=== PATIENT | male | born 1995 | race African-American/Black ===

== ENCOUNTER 2018-05-08 19:58 | Emergency (ER) | payer OTHER ==
--- NOTE | 2018-05-08 22:35 | ED Physician Documentation ---
PD HPI URI - Stated complaint Stated Complaint: DIAZ/SORE THROAT - Chief complaint Chief Complaint: Heent - History obtained from History obtained from: Patient - History of Present Illness Timing - onset: How many days ago (1awoke today with sore throat and fever.) Timing duration: Days (1) Timing details: Abrupt onset, Still present Associated symptoms: Fever, Chills, Sore throat, Swollen nodes. No: Nasal congestion, Rhinorrhea, Sinus pain, Dry cough, NVD Contributing factors: No: Sick contact Worsened by: Breathing Similar symptoms before: Has not had sx before Recently seen: Not recently seen Review of Systems Constitutional: reports: Fever, Chills, Myalgias Nose: denies: Rhinorrhea / runny nose, Congestion Throat: reports: Sore throat Cardiac: denies: Chest pain / pressure Respiratory: denies: Dyspnea, Cough GI: denies: Nausea, Vomiting, Diarrhea Skin: denies: Rash PD PAST MEDICAL HISTORY - Past Medical History Past Medical History: No Cardiovascular: None Respiratory: None Neuro: None Endocrine/Autoimmune: None - Past Surgical History Past Surgical History: No - Present Medications Home Medications: Ambulatory Orders Medication Instructions Recorded Confirmed Cephalexin [Keflex] 500 mg PO Q6H #28 capsule 05/08/18 Dexamethasone [Decadron] 4 mg PO DAILY #5 tablet 05/08/18 Naproxen 500 mg PO BID #20 tablet 05/08/18 Tramadol HCl 50 mg PO Q6H PRN #15 tablet 05/08/18 - Allergies Allergies/Adverse Reactions: Allergies Allergy/AdvReac Type Severity Reaction Status Date / Time No Known Drug Allergies Allergy Verified 05/08/18 20:07 - Social History Does the pt smoke?: No Smoking Status: Never smoker Does the pt drink ETOH?: No Does the pt have substance abuse?: No - Immunizations Immunizations are current?: Yes PD ED PE NORMAL - Vitals Vital signs reviewed: Yes - General General: Alert and oriented X 3, No acute distress (but pain with swallowing and has slight garbling of voice with talking), Well developed/nourished - HEENT HEENT: Ears normal. No: Pharynx benign - Neck Neck: Supple, no meningeal sign, Other (anterior adenopathy which is tender. ) - Cardiac Cardiac: RRR, No murmur - Respiratory Respiratory: Clear bilaterally - Abdomen Abdomen: Soft, Non tender, No organomegaly - Derm Derm: Normal color, Warm and dry - Extremities Extremities: No tenderness to palpate, Normal ROM s pain, No calf tenderness / cord - Neuro Neuro: Alert and oriented X 3, No motor deficit. No: Normal speech (slightly garbled. ) Results - Vitals Vitals: Oxygen O2 Source Room air - Labs Labs: Microbiology 05/08/18 20:09 Group A Strep Throat Culture - Final Throat MIXED OROPHARYNGEAL GUILLERMINA PRESENT. NO BETA STREP PRESENT IN CULTURE. Laboratory Tests 05/08/18 20:09 Group A Strep Rapid Negative PD MEDICAL DECISION MAKING - ED course Complexity details: considered differential (has enlarged exudative tonsils, with peritonsillar redness and swelling but no deviation of it on the left. Has 4/4 Centor. ), d/w patient Departure - Departure Disposition: 01 Home, Self Care Clinical Impression: Peritonsillar cellulitis Acute tonsillitis Qualifiers: Pharyngitis/tonsillitis etiology: unspecified etiology Qualified Code(s): J03.90 - Acute tonsillitis, unspecified Condition: Stable Record reviewed to determine appropriate education?: Yes Instructions: ED Peritonsillar Infec Abx No I andD Follow-Up: [facility] [Provider Group] Prescriptions: Cephalexin [Keflex] 500 mg PO Q6H #28 capsule Dexamethasone [Decadron] 4 mg PO DAILY #5 tablet Naproxen 500 mg PO BID #20 tablet Tramadol HCl 50 mg PO Q6H PRN #15 tablet PRN Reason: Pain Comments: Drink lots of fluids. Use naproxen twice daily for pains and fever. Add Tylenol or tramadol if needed for pains. Decadron steroid for inflammation of the throat and tonsils daily for the next 5 days. Cephalexin antibiotic for the infection. Recheck if not improving over the next couple of days. Off work for 1-2 days based on symptoms. Forms: Activity restrictions Discharge Date/Time: 05/08/18 23:36
[2018-05-08] MEDS ORDERED: HYDROcod/ACETAM 5/325 MG TABLET PO STA (23:19)
[2018-05-08] MEDS ORDERED: LIDOCAINE VISCOUS 2% 15 ML UDC MM STA (23:19)
[2018-05-08] MEDS ORDERED: diphenhydrAMINE ELIXIR 25 MG/10 ML UDC PO STA (23:19)
[2018-05-08] MEDS ORDERED: DEXAMETHASONE 10 MG/ML VIAL PO STA (23:19)
[2018-05-08] MEDS ORDERED: cephALEXin 250 MG CAPSULE PO STA (23:19)
[2018-05-08 23:36] VITALS: BP 123/87
== END 2018-05-08 23:36 | disposition home or self-care (01) ==
LOC: ED 19:58
DX: J03.90 Acute tonsillitis, unspecified (principal)
CPT/HCPCS: 87070; 87430; 99283

== ENCOUNTER 2018-07-17 20:20 | Emergency (ER) | payer OTHER ==
[2018-07-17 20:26] VITALS: BP 121/67
[2018-07-17] MEDS ORDERED: IBUPROFEN 100 MG/5 ML UDC PO STA (20:41)
[2018-07-17] MEDS ORDERED: DEXAMETHASONE 10 MG/ML VIAL PO STA (20:42)
--- NOTE | 2018-07-17 20:43 | ED Physician Documentation ---
History of Present Illness - Stated complaint Stated Complaint: FEVER - Chief complaint Chief Complaint: Fever - History obtained from History obtained from: Patient - History of Present Illness Timing: Today (Healthy 22-year-old gentleman, active duty in the [employer] has been sick today with a sore throat and difficulty swallowing because of the swelling and high fevers up to 103. Is not associated with rhinorrhea, cough or body aches but he has had chills.) Review of Systems Constitutional: reports: Fever, Chills Nose: denies: Rhinorrhea / runny nose, Congestion Throat: reports: Sore throat Cardiac: denies: Chest pain / pressure, Palpitations Respiratory: denies: Dyspnea PD PAST MEDICAL HISTORY - Past Medical History Cardiovascular: None Respiratory: None Neuro: None Endocrine/Autoimmune: None - Past Surgical History Past Surgical History: No - Present Medications Home Medications: Ambulatory Orders Medication Instructions Recorded Confirmed Cephalexin [Keflex] 500 mg PO Q6H #28 capsule 05/08/18 Dexamethasone [Decadron] 4 mg PO DAILY #5 tablet 05/08/18 Naproxen 500 mg PO BID #20 tablet 05/08/18 Tramadol HCl 50 mg PO Q6H PRN #15 tablet 05/08/18 Ibuprofen [Motrin] 800 mg PO Q8H PRN #30 tablet 07/17/18 Penicillin V Potassium 500 mg PO Q6HR #40 tablet 07/17/18 - Allergies Allergies/Adverse Reactions: Allergies Allergy/AdvReac Type Severity Reaction Status Date / Time No Known Drug Allergies Allergy Verified 07/17/18 20:26 - Social History Does the pt smoke?: No Smoking Status: Never smoker Does the pt drink ETOH?: No Does the pt have substance abuse?: No - Immunizations Immunizations are current?: Yes PD ED PE NORMAL - Vitals Vital signs reviewed: Yes - General General: Alert and oriented X 3, No acute distress - HEENT HEENT: PERRL, EOMI, Other (Kissing but symmetric tonsillitis with exudates) - Neck Neck: Supple, no meningeal sign, No bony TTP - Derm Derm: No rash - Neuro Neuro: Alert and oriented X 3, Normal speech Results - Vitals Vitals: Vital Signs - 24 hr 07/17/18 20:24 Temperature 37.5 C Heart Rate 74 Respiratory 18 Rate Blood Pressure 121/67 O2 Saturation 100 Oxygen O2 Source Room air - Labs Labs: Laboratory Tests 07/17/18 20:36 Group A Strep Rapid Negative Departure - Departure Disposition: Home, Self Care Clinical Impression: Acute tonsillitis Qualifiers: Pharyngitis/tonsillitis etiology: unspecified etiology Qualified Code(s): J03.90 - Acute tonsillitis, unspecified Condition: Good Record reviewed to determine appropriate education?: Yes Instructions: ED Peritonsillar Infec Abx No I andD Prescriptions: Penicillin V Potassium 500 mg PO Q6HR #40 tablet Ibuprofen [Motrin] 800 mg PO Q8H PRN #30 tablet PRN Reason: PAIN &/OR FEVER Comments: Call your doctor to arrange a follow-up appointment, make the next available appointment. In the interim, return anytime if worse or if new symptoms develop. Forms: Activity restrictions
[2018-07-17] MEDS ORDERED: PENICILLIN VK 250 MG TABLET PO STA (20:54)
== END 2018-07-17 21:02 | disposition home or self-care (01) ==
LOC: ED 20:20
DX: J03.90 Acute tonsillitis, unspecified (principal)
CPT/HCPCS: 87070; 87430; 99283; A9270

== ENCOUNTER 2020-09-19 05:20 | Emergency (ER) | payer OTHER ==
[2020-09-19 05:45] LABS: RAPID STREP SCREEN Negative (Negative)
--- NOTE | 2020-09-19 06:32 | ED Physician Documentation ---
PD HPI HEENT - Stated complaint Stated Complaint: THROAT PX - Chief complaint Chief Complaint: Heent - History obtained from History obtained from: Patient - History of Present Illness Timing - onset: How many days ago (2) Timing - duration: Days (2) Timing - details: Gradual onset, Still present Location: Throat Improves: Medication Worsens: [place] Associated symptoms: Congestion. 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 He has been seen in the emergency department twice previously for tonsillitis. He indicates that he has been tested for Covid on a routine testing 2 days ago. Symptoms developed following that and he does indicate that he is immunized with his first shot. He is not having cough he endorses fatigue and denies fever. Review of Systems Constitutional: reports: Fatigue. denies: Fever Eyes: denies: Decreased vision Ears: denies: Ear pain Nose: reports: Rhinorrhea / runny nose, Congestion Throat: reports: Sore throat Cardiac: denies: Chest pain / pressure, Palpitations Respiratory: denies: Dyspnea, Cough GI: denies: Abdominal Pain, Nausea, Vomiting PD PAST MEDICAL HISTORY - Past Medical History Past Medical History: No Cardiovascular: None Respiratory: None Neuro: None Endocrine/Autoimmune: None - Past Surgical History Past Surgical History: No - Present Medications Home Medications: Ambulatory Orders Medication Instructions Recorded Confirmed Ibuprofen [Motrin] 800 mg PO Q8H PRN #30 tablet 07/17/18 09/19/20 Amox/Clav 875/125 [Augmentin] 1 each PO Q12H #20 tablet 09/19/20 - Allergies Allergies/Adverse Reactions: Allergies Allergy/AdvReac Type Severity Reaction Status Date / Time No Known Drug Allergies Allergy Verified 09/19/20 05:31 - Social History Does the pt smoke?: No Smoking Status: Never smoker Does the pt drink ETOH?: No Does the pt have substance abuse?: No - Immunizations Immunizations are current?: Yes - POLST Patient has POLST: No PD ED PE NORMAL - Vitals Vital signs reviewed: Yes (Hypertensive mild) - General General: Alert and oriented X 3, No acute distress, Well developed/nourished - HEENT HEENT: Atraumatic, PERRL, EOMI, Other (The right TM is erythematous with flattening of the landmarks the pharynx is with 2+ cryptic tonsils with exudate) - Neck Neck: Supple, no meningeal sign, No bony TTP - Cardiac Cardiac: RRR, No murmur - Respiratory Respiratory: No respiratory distress, Clear bilaterally - Abdomen Abdomen: Soft, Non tender - Back Back: No CVA TTP, No spinal TTP - Derm Derm: Normal color, Warm and dry, No rash - Extremities Extremities: No deformity, No edema - Neuro Neuro: Alert and oriented X 3, 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, No motor deficit, No sensory deficit, Normal speech Eye Opening: Spontaneous Motor: Obeys Commands Verbal: Oriented GCS Score: 15 - Psych Psych: Normal mood, Normal affect Results - Vitals Vitals: Vital Signs - 24 hr 09/19/20 09/19/20 05:31 05:36 Temperature 36.2 C L 36.2 C L Heart Rate 60 60 Respiratory 16 16 Rate Blood Pressure 144/76 H 144/76 H O2 Saturation 100 100 Oxygen O2 Source Room air - Labs Labs: Laboratory Tests 09/19/20 05:23 Group A Strep Rapid Negative PD MEDICAL DECISION MAKING - ED course Complexity details: considered differential, d/w patient ED course: 24-year-old male with recurrence of tonsillitis as otitis on exam today as well. He is treated with dexamethasone 10 mg orally we will place him on a course of Augmentin. Departure - Departure Disposition: 01 Home, Self Care Clinical Impression: Acute tonsillitis Qualifiers: Pharyngitis/tonsillitis etiology: unspecified etiology Qualified Code(s): J03.90 - Acute tonsillitis, unspecified Otitis media Qualifiers: Otitis media type: suppurative Chronicity: acute Laterality: right Recurrence: not specified as recurrent Spontaneous tympanic membrane rupture: without spontaneous rupture Qualified Code(s): H66.001 - Acute suppurative otitis media without spontaneous rupture of ear drum, right ear Condition: Stable Instructions: ED Otitis Media Acute Adult, ED Tonsillitis Follow-Up: [facility] [Provider Group] Prescriptions: Amox/Clav 875/125 [Augmentin] 1 each PO Q12H #20 tablet
[2020-09-19] MEDS ORDERED: CHERRY SYRUP 10 ML UDC PO ONE (07:07)
[2020-09-19] MEDS ORDERED: DEXAMETHASONE 10 MG/ML VIAL PO STA (07:07)
[2020-09-19 07:28] VITALS: BP 132/72
== END 2020-09-19 07:27 | disposition home or self-care (01) ==
LOC: ED 05:20
DX: J03.90 Acute tonsillitis, unspecified (principal); H66.001 Acute suppurative otitis media without spontaneous rupture of ear drum, right ear
CPT/HCPCS: 87070; 87077; 87430; 99283; 99284; A9270